=== PATIENT | male | born 1975 | race Caucasian/White ===

== ENCOUNTER 2022-05-11 10:04 | Emergency (ER) | payer BC, OTHER | END 2022-05-11 11:40 | disposition home or self-care (01) | LOC: VM.ED 10:04 → MERGE 10:04 → SUPCPDRO 10:04 → VM.ED 11:40 | DX: S29.012A Strain of muscle and tendon of back wall of thorax, initial encounter (principal); X50.1XXA Overexertion from prolonged static or awkward postures, initial encounter | CPT/HCPCS: 93005; 93010; 99283; 99284 ==